=== PATIENT | female | born 1965 | race African-American/Black ===

== ENCOUNTER 2016-12-12 18:20 | Inpatient (IN) ==
[2016-12-12] MEDS ORDERED: HYDROmorphone 2 MG/1 ML VIAL IV STA (19:26)
[2016-12-12] MEDS ORDERED: ONDANSETRON 4 MG/2 ML VIAL IV STA (19:26)
[2016-12-12] MEDS ORDERED: ONDANSETRON 4 MG/2 ML VIAL ONE ×2 (19:26→21:12)
[2016-12-12] MEDS ORDERED: HYDROmorphone 2 MG/1 ML VIAL ONE ×3 (19:26→23:10)
--- NOTE | 2016-12-12 19:31 | Emergency Department Note ---
Rosetta Walton Hilary, am scribing for, and in the presence of, Will Newsome MD 18:53. Jerod Walton Robert M, MD, personally performed the services described in this documentation, ascribed by Patricia Sargent in my presence, and it is both accurate and complete 930 . Arrival - Arrival Chief Complaint: Abdominal / Flank Pain Stated Complaint: POST OP COMPLICATIONS ED Nursing Triage Note: C/O ABDOMINAL PAIN WITH ONSET 1700 TODAY. PT STATES SHE HAD A PARTIAL HYSTERECTOMY IN MAY OF LAST YEAR AND HAS HAD NO COMPLICATIONS. TODAY, PT WENT TO BATHROOM AND NOTICED A "WAD OF SOMETHING" WAS IN HER PANTIES. Mode of Arrival: Ambulatory Limitations: No Limitations Source: Patient, RN Notes Reviewed Time Seen by Provider: 12/12/16 18:45 - History of Present Illness HPI Narrative: Pt is a 51 y/o black female presenting to the ED with c/o abdominal pain which onset today. Pt states that she had a partial hysterectomy done per [facility] for a prolapsed uterus. She reports that she was peeing a lot and then noticed "something in her panties" she denies bleeding or pain. No other complaints or problems stated in the ED. Onset (ago): hour(s) Consistency: constant Severity: mild Severity scale (1-10): 1 Allergies/Adverse Reactions: Allergies Allergy/AdvReac Type Severity Reaction Status Date / Time No Known Allergies Allergy Unverified 01/27/16 09:13 Home Medications: Home Medications Medication Instructions Recorded Confirmed Type Butalbital/Acet/Caff 50-325-40 1 tablet PO Q4H PRN 12/12/16 12/12/16 History [Fioricet 50-325-40 mg Tablet] Nortriptyline [Pamelor] 10 mg PO BEDTIME 12/12/16 12/12/16 History Promethazine Tab [Phenergan Tab] 25 mg PO TID PRN 12/12/16 12/12/16 History Propranolol HCl [Propranolol Tab] 40 mg PO BID 12/12/16 12/12/16 History amLODIPine [Norvasc] 10 mg PO DAILY 12/12/16 12/12/16 History Review of System - Review of System 12 point system: reviewed and no additional remarkable complaints except as stated - Review of System Constitutional: Absent: fever Gastrointestinal: Present: abdominal pain Genitourinary female: Present: frequency, other ("something in her panties"). Absent: dysuria, hematuria Medical,Surgical,& Family Hx - Medical History Cardio: History of: Hypertension Neurology: History of: Migraine - Surgical History Reproductive Surgeries: Surgical HX of;: Hysterectomy (partial per [facility]) - Family History Family History: Reports;: Family Hypertension - Social History Smoking Status: Current every day smoker Frequency of Alcohol Use: None Type of Drug Use: None Exam Vital Signs: Vital Signs Temperature 97.9 F 12/12/16 18:44 Pulse Rate 83 12/12/16 18:44 Respiratory Rate 18 12/12/16 18:44 Blood Pressure 133/102 12/12/16 18:44 O2 Sat by Pulse Oximetry 96 12/12/16 18:30 - General General appearance: alert, in no apparent distress - Head Head exam: Present: atraumatic, normocephalic - Eye Eye exam: Present: normal appearance, PERRL, EOMI - ENT ENT exam: Present: mucous membranes moist, TM's normal bilaterally. Absent: mucous membranes dry - Neck Neck exam: Present: full ROM, trachea midline. Absent: tenderness - Chest Chest inspection: Present: symmetric chest wall rise. Absent: tenderness - Respiratory Respiratory exam: Present: normal lung sounds bilaterally. Absent: respiratory distress - Cardiovascular Cardiovascular exam: Present: regular rate, normal rhythm, normal heart sounds. Absent: murmur, rubs, gallop - Abdominal Exam Abdominal exam: Present: soft, normal bowel sounds. Absent: distention, tenderness - Female exam ED: Present: other (a cystocele) - Extremities Exam Extremities exam: Present: full ROM. Absent: tenderness - Back Exam Back exam: Present: full ROM. Absent: tenderness - Neurological Exam Neurological exam: Present: alert, oriented X3, CN II-XII intact. Absent: motor sensory deficit - Psychiatric Psychiatric exam: Present: normal affect, normal mood - Skin Skin exam: Present: warm, dry, intact, normal color. Absent: rash Course - Reevaluation(s) Reevaluation #1: Attempted manual reduction of the structure favored to represent cystocele with no johnie. Time: 19:25 - Consultations Consultation #1: Dr. Aj will come and evaluate the patient. Time: 19:27 Disposition Clinical Impression: Small bowel evisceration through vaginal Case discussed with: patient, patient's family Disposition: Still a Patient Condition: Stable Time of Disposition: 20:12
--- NOTE | 2016-12-12 20:13 | OB/GYN History & Physical ---
History of Present Illness Chief complaint: Status post hysterectomy with dehiscence of bowel through the vaginal cuff History of present illness: Ms. Schmitt is a 51 year old female Status post hysterectomy by Dr. Will Maldonado back in May was uncomplicated postoperatively until this morning patient states that she was trying to have a bowel movement and went to strain and at that point noted to have protrusion through the vagina which on evaluation in the ER appears to be small bowel mesentery which may have some degree of ischemia.. Patient was counseled general surgery was consulted and wrist benefits were explained patient detail informed to was obtained for laparotomy with repair of vaginal cuff and possible partial small bowel resection by general surgery. Home Medications Medication Instructions Recorded Confirmed Type Butalbital/Acet/Caff 50-325-40 1 tablet PO Q4H PRN 12/12/16 12/12/16 History [Fioricet 50-325-40 mg Tablet] Nortriptyline [Pamelor] 10 mg PO BEDTIME 12/12/16 12/12/16 History Promethazine Tab [Phenergan Tab] 25 mg PO TID PRN 12/12/16 12/12/16 History Propranolol HCl [Propranolol Tab] 40 mg PO BID 12/12/16 12/12/16 History amLODIPine [Norvasc] 10 mg PO DAILY 12/12/16 12/12/16 History Allergies Allergy/AdvReac Type Severity Reaction Status Date / Time No Known Allergies Allergy Unverified 01/27/16 09:13 12 point system: reviewed and no additional remarkable complaints except as stated Medical,Surgical,& Family Hx - Medical History Cardio: History of: Hypertension Neurology: History of: Migraine - Surgical History Reproductive Surgeries: Surgical HX of;: Hysterectomy (partial per [facility]) - Family History Family History: Reports;: Family Hypertension - Social History Smoking Status: Current every day smoker Frequency of Alcohol Use: None 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 of 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 - Constitutional Vitals: Vital Signs Temp Pulse Resp BP Pulse Ox 12/12/16 18:44 97.9 F 83 18 133/102 12/12/16 18:30 97.9 F 83 18 133/102 96 General appearance: normal weight, no acute distress - Head Head exam: Present: normal inspection, normocephalic, atraumatic - Neck Neck exam: Present: normal inspection - Respiratory Respiratory exam: Present: clear to auscultation bilaterally - Breast Breasts: as per HPI Menstruation: as per HPI - Cardiovascular Cardiovascular exam: Present: regular rate and rhythm - GI/Abdominal GI/Abdominal exam: Present: hypoactive bowel sounds - Extremities Exam Extremities exam: Present: normal inspection, normal capillary refill - Back Exam Back exam: Present: normal inspection - Neurological Exam Neurological exam: Present: alert, oriented X3 - Psychiatric Psychiatric exam: Present: normal affect, normal mood Assessment and Plan (1) Evisceration of bowel Status: Acute Current Visit: Yes (2) Vaginal cuff dehiscence Status: Acute Current Visit: Yes
[2016-12-12 20:19] LABS: Basophils % 0.4 % (0.0-0.8); Eosinophils # 0.6 10*3/uL (0.0-0.87); Eosinophils % 5.8 % (0.00-10.9); Hematocrit 34.7 VOL% (35.7-47.0); Hemoglobin 11.9 GM/DL (12.0-16.0); Immature Granulocytes % 0.3 %; Immature Granulocytes Absolute 0.03 #; Lymphocytes # 3.1 10*3/uL (1.4-4.0); Lymphocytes % 30.5 % (21.3-54.2); Mean Corpuscular HGB Conc 34.3 GM/DL (32-36); Mean Corpuscular Hemoglobin 29 PG (27-34); Mean Corpuscular Volume 83.4 FL (87-102); Mean Platelet Volume 10.3 FL (9.6-12.0); Monocytes # 0.6 10*3/uL (0.11-0.8); Monocytes % 6.1 % (1.7-12.7); Neutrophils # 5.7 10*3/uL (1.4-7.4); Neutrophils % 56.9 % (38.7-73.9); Platelet Count 306 T/CUMM (130-400); Red Blood Count 4.16 MC/CUMM (3.8-5.5); Red Cell Distribution Width 14.8 % (9.3-17.3)
[2016-12-12] MEDS ORDERED: MAGNESIUM HYDROXIDE SUSP 30 ML UDCUP PO PRN (20:23)
[2016-12-12] MEDS ORDERED: IBUPROFEN 800 MG TABLET PO PRN (20:23)
[2016-12-12] MEDS ORDERED: BENZOCAINE/MENTHOL LOZENGE 18/BOX PO PRN (20:23)
[2016-12-12] MEDS ORDERED: ACETAMINOPHEN 325 MG TABLET PO PRN (20:23)
[2016-12-12] MEDS ORDERED: BISACODYL 10 MG SUPP RECTAL PRN (20:23)
[2016-12-12] MEDS ORDERED: DOCUSATE SODIUM 100 MG CAPSULE PO PRN (20:23)
[2016-12-12] MEDS ORDERED: oxyCODONE/ACETAMINOPHEN 5-325 MG TABLET PO PRN (20:23)
[2016-12-12] MEDS ORDERED: ONDANSETRON 4 MG/2 ML VIAL IV PRN ×2 (20:23→23:27)
[2016-12-12 20:27] LABS: Calcium 8.4 MG/DL (8.5-10.1); Magnesium 1.9 MG/DL (1.8-2.4); Osmolality,Calculated 283.3 MOS/KG (273-304); Potassium 3.9 MMOL/L (3.5-5.1)
--- NOTE | 2016-12-12 20:29 | XRay Report ---
Exam: XR chest 1V portable Date: 12/12/2016 8:11 PM Indication: Chest pain shortness of breath Comparison: None Technical AP portable Findings:: Mild cardiac enlargement. External cardiac leads are present. No obvious infiltrates or effusions. The mediastinum and bony structures are intact. Impression: 1. Borderline cardiac enlargement without decompensation PROCEDURE INTERPRETED AT [facility] DEPARTMENT OF RADIOLOGY Final Report Signed by: Dr. Paramjit Rose
[2016-12-12] MEDS ORDERED: CITRIC ACID/SODIUM CITRATE 30 ML UDCUP PO ONE (20:44)
[2016-12-12] MEDS ORDERED: METOCLOPRAMIDE 10 MG/2 ML VIAL IV STA (20:44)
[2016-12-12] MEDS ORDERED: METOCLOPRAMIDE 10 MG/2 ML VIAL ONE (20:47)
[2016-12-12] MEDS ORDERED: SUCCINYLCHOLINE 200 MG/10 ML VIAL ONE (21:12)
[2016-12-12] MEDS ORDERED: NEOSTIGMINE 10 MG/10 ML VIAL ONE (21:12)
[2016-12-12] MEDS ORDERED: ROCURONIUM 100 MG/10 ML VIAL IV ONE (21:12)
[2016-12-12] MEDS ORDERED: GLYCOPYRROLATE 0.4 MG/2 ML VIAL ONE (21:12)
[2016-12-12] MEDS ORDERED: PROPOFOL 200 MG/20 ML VIAL IV ONE (21:12)
[2016-12-12] MEDS ORDERED: LIDOCAINE 100 MG/5 ML SYRINGE ONE (21:12)
--- NOTE | 2016-12-12 22:04 | Operative Note ---
Procedure: Was called by Dr. Aj from the emergency room on this patient who had a previous hysterectomy and Joel at the end of last year. She had eviscerated some small bowel through the vagina. She was taken the operating room where Dr. Aj open the abdomen through a Pfannenstiel incision. At this time I identified the ileum protruding through the vaginal cuff which was tight. Small incision was made on the vaginal cuff opening it slightly and the small bowel was able to be reduced back to within the abdomen. It appeared fairly congested but viable. It was packed in the abdomen while Dr. Aj repaired the vaginal cuff dehiscence. The abdomen was then thoroughly irrigated and suctioned. I reexamined the small bowel and there were no dusky areas. The congestion appeared to be improving. No other pelvic abnormality was identified. Dr. Aj then closed the abdomen. See his operative report for full details regarding the procedure. There was excellent hemostasis throughout the procedure. Surgeon / Physician: Brendon Jensen Results - Labs CBC & BMP: 12/12/16 19:38 12/12/16 19:38 Discharge Plan - Discharge Medications No Action Propranolol HCl [Propranolol Tab] 40 mg PO BID Promethazine Tab [Phenergan Tab] 25 mg PO TID PRN PRN Reason: Headache Butalbital/Acet/Caff 50-325-40 [Fioricet 50-325-40 mg Tablet] 1 tablet PO Q4H PRN PRN Reason: Headache amLODIPine [Norvasc] 10 mg PO DAILY Nortriptyline [Pamelor] 10 mg PO BEDTIME - Follow Up or Referral - Forms/Instructions
--- NOTE | 2016-12-12 22:40 | Operative Note ---
Date of procedure: 12/12/16 Pre-op diagnosis: Evisceration of small bowel through the apex of the vaginal cuff Post-op diagnosis: same Procedure: Laparotomy with repair of vaginal cuff After the risks benefits and alternatives were explained patient detail informed to was obtained patient was taken the operating room where she is placed in the supine position. After achieving appropriate general endotracheal anesthesia patient was carefully repositioned to the low lithotomy position in Pilo stirrups. The perineum vagina and abdomen were prepped and draped in usual sterile fashion. A Sánchez catheter was placed which revealed clear urine. After the appropriate time out a Pfannenstiel skin incision was made carried down through the subcutaneous tissue down the fascia. The fascia was nicked in the midportion undermined and incised with laterally and cephalad using sharp dissection with curved Roberts scissors. There is noted that the fascia was somewhat attenuated consistent with probable poor nutrition of the patient. The peritoneum was identified grasped with a curved hemostats and entered sharply using Metzenbaum scissors. The peritoneal incision was carried posteriorly inferiorly mentioned above the bladder bladder. The bowel was swept away cephalad using moist laparotomy sponge. This point the procedure Dr. Jensen scrubbed in and found that the loop of bowel was somewhat strangulated in the vaginal cuff. He extended the incision on the vaginal cuff the bowel was then freed up and he then inspected the bowel. The vaginal cuff was then grasped at both margins and it was closed using #1 Monocryl suture in a running interlocking fashion. Hemostasis noted to be excellent. At this point Dr. Jensen reevaluate the bowel. It was noted to be hyperemic but he felt like the blood supply was not compromised and consequently no further surgery was done. The abdomen was copiously irrigated and all areas noted to be hemostatic. All counts are noted to be correct the peritoneum was then closed with 2-0 PDS suture in a running fashion. The subfascial area was made hemostatic using electrocautery and the fascia closed with #1 PDS suture in a running fashion taking wide bites beginning at both angles and overlapping slightly midline. The subcutaneous tissue was irrigated and is to use electrocautery closed with 2-0 Vicryl suture in an running fashion and the skin was closed with skin la and sterile pressure bandage applied the wound. All sponge needle and insert counts correct times in the procedure. Note that the urine was somewhat blood-tinged after the bowel had been removed from the apex of the vagina. Prior to closure of the peritoneum and of the layers of the bladder was insufflated with injectable normal saline that was sterile and there was no evidence of any compromise of the bladder wall. The patient was taken out of lithotomy position woke from anesthesia without complication taken to recovery room in stable condition Anesthesia: EMILIE Surgeon / Physician: Simba Aj Estimated blood loss: minimal Specimens: none sent Condition: stable Disposition: floor Results - Labs CBC & BMP: 12/12/16 19:38 12/12/16 19:38 Discharge Plan - Discharge Medications No Action Propranolol HCl [Propranolol Tab] 40 mg PO BID Promethazine Tab [Phenergan Tab] 25 mg PO TID PRN PRN Reason: Headache Butalbital/Acet/Caff 50-325-40 [Fioricet 50-325-40 mg Tablet] 1 tablet PO Q4H PRN PRN Reason: Headache amLODIPine [Norvasc] 10 mg PO DAILY Nortriptyline [Pamelor] 10 mg PO BEDTIME - Follow Up or Referral - Forms/Instructions
[2016-12-12] MEDS ORDERED: SUGAMMADEX 200 MG/2 ML VIAL IV ONE (22:45)
[2016-12-12] MEDS ORDERED: fentaNYL 100 MCG/2 ML VIAL ONE ×2 (22:55→23:11)
--- NOTE | 2016-12-12 23:07 | Anesthesia Post-Op ---
Anesthesia Post OP - Post Ansesthetic Evaluation Patient seen in post op: Yes Resp: within normal limits CV: within normal limits Mental: within normal limits Temp: within normal limits Mhbn-Vk-Oyetguroe: within normal limits Nausea and Vomiting: within normal limits Pain: within normal limits
[2016-12-12] MEDS ORDERED: SEVOFLURANE 1 UNIT/15 MINUTE INH ONE (23:10)
[2016-12-12] MEDS ORDERED: MIDAZOLAM 2 MG/2 ML VIAL ONE (23:10)
[2016-12-12] MEDS ORDERED: ACETAMINOPHEN 1,000 MG/100 ML VIAL IV ONE (23:11)
[2016-12-12 23:20] LABS: Apearance,Urine CLEAR (Clear); Bilirubin,Urine Negative (Negative); Blood, Urine Small mg/dL (Negative); Glucose,Urine (UA) Negative (Negative); Ketones,Urine 5 mg/dL (Negative); Mucus,Urine Occasional /LPF (Occasional); Nitrite,Urine Negative (Negative); Protein,Urine Negative; RBC,Urine 11 /HPF (0-4); Squamous Epithelial Cell,Urine Occasional /HPF (0-10); Urine Color Yellow (Yellow); Urine Specific Gravity 1.024 (1.001-1.035); Urine Urobilinogen < 2.0 EU/DL (0.2-1.0); WBC,Urine 2 /HPF (0-6)
[2016-12-12] MEDS ORDERED: HYDROmorphone 2 MG/1 ML VIAL IV PRN (23:27)
[2016-12-12] MEDS ORDERED: BUTALBITAL/ACETAMIN/CAFFEINE 50-325-40 MG TABLET PO PRN (23:57)
[2016-12-12] MEDS ORDERED: PROMETHAZINE 25 MG TABLET PO PRN (23:57)
[2016-12-13] MEDS: LACTATED RINGERS 1,000 ML IV SCH ×3 (00:49→19:30)
[2016-12-13 04:12] LABS: Basophils % 0.2 % (0.0-0.8); Eosinophils # 0.1 10*3/uL (0.0-0.87); Eosinophils % 1.1 % (0.00-10.9); Hematocrit 36.4 VOL% (35.7-47.0); Hemoglobin 11.8 GM/DL (12.0-16.0); Immature Granulocytes % 0.2 %; Immature Granulocytes Absolute 0.03 #; Lymphocytes # 1.8 10*3/uL (1.4-4.0); Lymphocytes % 14.9 % (21.3-54.2); Mean Corpuscular HGB Conc 32.4 GM/DL (32-36); Mean Corpuscular Hemoglobin 28 PG (27-34); Mean Corpuscular Volume 86.1 FL (87-102); Mean Platelet Volume 11.4 FL (9.6-12.0); Monocytes # 0.6 10*3/uL (0.11-0.8); Monocytes % 4.8 % (1.7-12.7); Neutrophils # 9.6 10*3/uL (1.4-7.4); Neutrophils % 78.8 % (38.7-73.9); Platelet Count 215 T/CUMM (130-400); Red Blood Count 4.23 MC/CUMM (3.8-5.5); Red Cell Distribution Width 15.2 % (9.3-17.3); White Blood Count 12.2 T/CUMM (4-12)
--- NOTE | 2016-12-13 06:54 | EKG Report ---
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
[2016-12-13] MEDS: PROPRANOLOL 40 MG TABLET PO SCH ×2 (08:43→20:35)
[2016-12-13] MEDS: amLODIPine 10 MG TABLET PO SCH (08:43)
--- NOTE | 2016-12-13 08:49 | OB/GYN Progress Note ---
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 She is tolerating liquids she is alert and oriented -3 Cardiovascular regular rate and rhythm Lungs clear to auscultation Abdomen soft with appropriate tenderness and bowel sounds are present but hypoactive and her incision is dry no bleeding Is good refill HEENT shows pink conjunctiva ssessment 1 day of surgery doing well Plan continue present management with continue clear liquids today and will advance diet slowly. 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 - Constitutional Vitals: Vital Signs Temp Pulse Pulse Resp BP BP Pulse Ox 12/13/16 04:45 85 20 107/74 12/13/16 03:45 93 H 18 105/69 12/13/16 02:45 77 16 112/69 12/13/16 01:45 77 18 110/70 12/13/16 01:15 88 20 112/68 12/13/16 00:45 70 18 105/64 12/13/16 00:30 80 16 104/71 12/13/16 00:15 60 20 104/71 12/13/16 00:00 97.5 F L 60 60 16 133/72 100 12/12/16 23:42 97.4 F L 78 16 112/84 100 12/12/16 23:32 68 16 119/86 99 12/12/16 23:22 66 16 123/74 100 12/12/16 23:12 66 16 127/77 99 12/12/16 23:07 63 16 117/58 100 12/12/16 23:02 77 16 104/58 99 12/12/16 22:57 74 16 145/78 99 12/12/16 22:52 97.6 F 91 H 16 127/95 98 12/12/16 18:44 97.9 F 83 18 133/102 12/12/16 18:30 97.9 F 83 18 133/102 96 Pulse Ox 12/13/16 04:45 99 12/13/16 03:45 99 12/13/16 02:45 98 12/13/16 01:45 97 12/13/16 01:15 96 12/13/16 00:45 96 12/13/16 00:30 97 12/13/16 00:15 97 12/13/16 00:00 100 12/12/16 23:42 12/12/16 23:32 12/12/16 23:22 12/12/16 23:12 12/12/16 23:07 12/12/16 23:02 12/12/16 22:57 12/12/16 22:52 12/12/16 18:44 12/12/16 18:30 Results - Labs CBC & BMP: 12/13/16 02:56 12/12/16 19:38
--- NOTE | 2016-12-13 14:14 | Event Note ---
Patient is a 51-year-old female postop day #1 status post laparotomy with repair of vaginal cuff for evisceration of small bowel through the vaginal cuff. Dr. Durham was consulted for examination of the bowel. There is no evidence of concern for ischemia. Patient is tolerating clears without complication. Abdomen is soft and nontender. Bowel sounds are present. Recommend advancing diet as tolerated.
[2016-12-13] MEDS ORDERED: NORTRIPTYLINE 10 MG CAPSULE PO SCH (21:00)
[2016-12-14] MEDS: LACTATED RINGERS 1,000 ML IV SCH (03:20)
--- NOTE | 2016-12-14 07:05 | Discharge Summary ---
Hospital Course - Hospital Course Hospital Course: Postoperatively the patient did well. She had quick return of bowel bladder function. She remained afebrile and normotensive throughout her hospitalization. She is counseled discharged on postoperative day #2 on a regular diet Diagnosis - Discharge Diagnosis (1) Evisceration of bowel Status: Acute (2) Vaginal cuff dehiscence Status: Acute Discharge Plan - Discharge Data Disposition: Disch To Home/Self Care Condition at Discharge: Stable Discharge Diet: regular diet Activity: increase activity as tolerated, no lifting, other (Pelvic rest) Hygiene: may shower Weight Bearing at Discharge: full weight bearing Driving: not until seen by doctor Contact your physician if you experience:: fever over 101, Difficulty voiding, Redness or swelling, Nausea/Vomiting, Shortness of breath, Bleeding, pain uncontrolled by pain medications - Discharge Medications New HYDROcodone/ACETAMIN 5-325 [[place] 5-325] 1 tablet PO Q4H PRN #20 tablet PRN Reason: Pain Moderate (4-7) Ibuprofen Tab [Motrin Tab] 800 mg PO Q8H PRN tablet PRN Reason: Pain Mild To Moderate (1-7) amLODIPine [Norvasc] 10 mg PO DAILY tablet Continue Propranolol HCl [Propranolol Tab] 40 mg PO BID Butalbital/Acet/Caff 50-325-40 [Fioricet 50-325-40 mg Tablet] 1 tablet PO Q4H PRN PRN Reason: Headache amLODIPine [Norvasc] 10 mg PO DAILY Nortriptyline [Pamelor] 10 mg PO BEDTIME Discontinued Promethazine Tab [Phenergan Tab] 25 mg PO TID PRN PRN Reason: Headache - Follow Up or Referral Follow Up: Simba Aj MD [Physician] - 1 Week - Forms/Instructions Exam - Constitutional Vitals: Period Temp Pulse Resp BP Sys/Starkey Pulse Ox Last 24 Hr 97.8 F-98.6 F 69-86 18-20 110-129/64-78 96-99 Discharge Results Procedures and tests throughout hospitalization: Pending Orders 12/12/16 Urine Culture Routine Labs on day of discharge: Preliminary micro results at discharge 12/12/16 Unknown Urine Culture - Preliminary Urine,Catheterized No Growth at 12 hours. DS: Provider Date of admission: 12/12/16 20:23 Primary care physician: . No PCP Attending physician on admission: Aidan Binghamarging clinician: Aidan Bingham
[2016-12-14] MEDS: PROPRANOLOL 40 MG TABLET PO SCH (08:32)
[2016-12-14] MEDS: amLODIPine 10 MG TABLET PO SCH (08:32)
[2016-12-14 11:27] VITALS: BP 113/73
== END 2016-12-14 13:45 | disposition home or self-care (01) | DRG 909 ==
LOC: N.ED 18:20 → N.EDINP 20:10 → N.2E 23:56
PROVIDERS: ADMIT Specialist; ATTEND Specialist

== ENCOUNTER 2017-08-13 10:28 | Inpatient (IN) ==
[2017-08-13 12:03] LABS: Basophils # 0.1 10*3/uL (0.0-0.2); Basophils % 0.4 % (0.0-0.8); Eosinophils # 0.1 10*3/uL (0.0-0.87); Eosinophils % 0.6 % (0.00-10.9); Hematocrit 32.9 VOL% (35.7-47.0); Hemoglobin 11.3 GM/DL (12.0-16.0); Immature Granulocytes % 0.5 %; Immature Granulocytes Absolute 0.08 #; Lymphocytes # 1.9 10*3/uL (1.4-4.0); Lymphocytes % 12.6 % (21.3-54.2); Mean Corpuscular HGB Conc 34.3 GM/DL (32-36); Mean Corpuscular Hemoglobin 28 PG (27-34); Mean Corpuscular Volume 82.5 FL (87-102); Mean Platelet Volume 10.2 FL (9.6-12.0); Monocytes # 0.4 10*3/uL (0.11-0.8); Monocytes % 2.6 % (1.7-12.7); Neutrophils # 12.9 10*3/uL (1.4-7.4); Neutrophils % 83.3 % (38.7-73.9); Platelet Count 426 T/CUMM (130-400); Red Blood Count 3.99 MC/CUMM (3.8-5.5); Red Cell Distribution Width 15.3 % (9.3-17.3); White Blood Count 15.5 T/CUMM (4-12)
[2017-08-13 12:26] LABS: Alanine Aminotransferase < 6 U/L (13-56); Albumin 3.2 G/DL (3.4-5.0); Alkaline Phosphatase 80 U/L (45-117); Aspartate Amino Transferase 24 U/L (0-37); Blood Urea Nitrogen 16 MG/DL (7-18); Calcium 8.8 MG/DL (8.5-10.1); Glucose 93 MG/DL (74-106); Magnesium 2.1 MG/DL (1.8-2.4); Osmolality,Calculated 283.1 MOS/KG (273-304); Potassium 4.4 MMOL/L (3.5-5.1); Sodium 142 MMOL/L (136-145)
[2017-08-13 13:25] LABS: Apearance,Urine CLEAR (Clear); Bilirubin,Urine Negative (Negative); Blood, Urine Moderate mg/dL (Negative); Glucose,Urine (UA) Negative (Negative); Hyaline Casts,Urine 1 /LPF (0-3); Ketones,Urine 5 mg/dL (Negative); Mucus,Urine Occasional /LPF (Occasional); Nitrite,Urine Negative (Negative); Protein,Urine Negative; RBC,Urine 40 /HPF (0-4); Urine Specific Gravity 1.028 (1.001-1.035); Urine Urobilinogen < 2.0 EU/DL (0.2-1.0); WBC,Urine 1 /HPF (0-6)
[2017-08-13 13:28] LABS: Urine Color U (Yellow)
[2017-08-13] MEDS ORDERED: LEVOFLOXACIN INJ 500 MG in PREMIX 1 EACH IV STA (13:29)
[2017-08-13 13:31] LABS: Barbiturates Screen,Urine Positive (Negative); Benzodiazepines Screen,Urine Positive (Negative); Cannabinoid Screen,Urine Negative (Negative); Opiate Screen,Urine Positive (Negative); Phencyclidine Screen,Urine Negative (Negative)
[2017-08-13] MEDS ORDERED: LEVOFLOXACIN INJ 100 ML IV ONE (13:50)
[2017-08-13] MEDS ORDERED: ONDANSETRON 4 MG/2 ML VIAL IV PRN (17:47)
[2017-08-13] MEDS ORDERED: LEVOFLOXACIN INJ 750 MG in PREMIX 1 EACH IV SCH (18:00)
[2017-08-13] MEDS: ALBUTEROL/IPRATROPIUM 3 ML NEB RESP TX SCH (21:09)
[2017-08-13] MEDS: TOPIRAMATE 25 MG TABLET PO SCH (21:57)
[2017-08-13] MEDS: PROPRANOLOL 40 MG TABLET PO SCH (21:57)
[2017-08-13] MEDS: ACETAMINOPHEN 325 MG TABLET PO PRN (22:02)
[2017-08-14] MEDS: ALBUTEROL/IPRATROPIUM 3 ML NEB RESP TX SCH ×4 (00:15→18:30)
[2017-08-14 07:33] LABS: Basophils % 0.5 % (0.0-0.8); Eosinophils # 0.2 10*3/uL (0.0-0.87); Eosinophils % 2.3 % (0.00-10.9); Hematocrit 32.1 VOL% (35.7-47.0); Hemoglobin 10.5 GM/DL (12.0-16.0); Immature Granulocytes % 0.4 %; Immature Granulocytes Absolute 0.03 #; Lymphocytes # 2.3 10*3/uL (1.4-4.0); Lymphocytes % 29.2 % (21.3-54.2); Mean Corpuscular HGB Conc 32.7 GM/DL (32-36); Mean Corpuscular Hemoglobin 28 PG (27-34); Mean Corpuscular Volume 84.9 FL (87-102); Mean Platelet Volume 10.1 FL (9.6-12.0); Monocytes # 0.3 10*3/uL (0.11-0.8); Neutrophils % 63.6 % (38.7-73.9); Platelet Count 358 T/CUMM (130-400); Red Blood Count 3.78 MC/CUMM (3.8-5.5); Red Cell Distribution Width 15.6 % (9.3-17.3); White Blood Count 7.8 T/CUMM (4-12)
[2017-08-14 08:07] LABS: Calcium 8.2 MG/DL (8.5-10.1); Magnesium 2.1 MG/DL (1.8-2.4); Osmolality,Calculated 286.8 MOS/KG (273-304); Potassium 3.7 MMOL/L (3.5-5.1)
[2017-08-14] MEDS: AZITHROMYCIN 250 MG TABLET PO SCH (09:27)
[2017-08-14] MEDS: PANTOPRAZOLE 40 MG TABLET PO SCH (09:27)
[2017-08-14] MEDS: amLODIPine 10 MG TABLET PO SCH (09:28)
[2017-08-14] MEDS: PROPRANOLOL 40 MG TABLET PO SCH ×2 (09:28→21:45)
[2017-08-14] MEDS: ACETAMINOPHEN 325 MG TABLET PO PRN (12:37)
[2017-08-14] MEDS ORDERED: LEVOFLOXACIN INJ 750 MG in PREMIX 1 EACH IV SCH (15:00)
[2017-08-14] MEDS: TOPIRAMATE 25 MG TABLET PO SCH (21:44)
[2017-08-14] MEDS: NICOTINE 21 MG/24 HR PATCH TRANSDERM SCH (21:45)
[2017-08-15] MEDS: ACETAMINOPHEN 325 MG TABLET PO PRN ×2 (02:24→09:57)
[2017-08-15 07:22] LABS: Basophils % 0.3 % (0.0-0.8); Eosinophils # 0.4 10*3/uL (0.0-0.87); Hematocrit 31.6 VOL% (35.7-47.0); Hemoglobin 10.4 GM/DL (12.0-16.0); Immature Granulocytes % 0.4 %; Immature Granulocytes Absolute 0.04 #; Lymphocytes # 2.5 10*3/uL (1.4-4.0); Lymphocytes % 28.3 % (21.3-54.2); Mean Corpuscular HGB Conc 32.9 GM/DL (32-36); Mean Corpuscular Hemoglobin 28 PG (27-34); Mean Corpuscular Volume 84.3 FL (87-102); Mean Platelet Volume 9.6 FL (9.6-12.0); Monocytes # 0.5 10*3/uL (0.11-0.8); Monocytes % 5.5 % (1.7-12.7); Neutrophils # 5.5 10*3/uL (1.4-7.4); Neutrophils % 61.5 % (38.7-73.9); Platelet Count 348 T/CUMM (130-400); Red Blood Count 3.75 MC/CUMM (3.8-5.5); Red Cell Distribution Width 15.5 % (9.3-17.3)
[2017-08-15] MEDS: ALBUTEROL/IPRATROPIUM 3 ML NEB RESP TX SCH ×2 (07:36)
[2017-08-15 07:51] LABS: Calcium 8.5 MG/DL (8.5-10.1); Osmolality,Calculated 287.7 MOS/KG (273-304); Potassium 3.6 MMOL/L (3.5-5.1)
[2017-08-15] MEDS: NICOTINE 21 MG/24 HR PATCH TRANSDERM SCH (09:56)
[2017-08-15] MEDS: amLODIPine 10 MG TABLET PO SCH (09:57)
[2017-08-15] MEDS: PROPRANOLOL 40 MG TABLET PO SCH (09:57)
[2017-08-15] MEDS: PANTOPRAZOLE 40 MG TABLET PO SCH (09:57)
[2017-08-15] MEDS: AZITHROMYCIN 250 MG TABLET PO SCH (09:57)
[2017-08-15 10:26] VITALS: BP 106/62
== END 2017-08-15 12:02 | disposition home or self-care (01) | DRG 195 ==
LOC: N.EDINP 10:28 → N.ED 10:28 → N.5E 19:01

== ENCOUNTER 2018-06-15 12:01 | Inpatient (IN) ==
[2018-06-15] MEDS ORDERED: SODIUM CHLORIDE 0.9% 1,000 ML IV STA (12:35)
[2018-06-15 13:16] LABS: Basophils # 0.1 10*3/uL (0.0-0.2); Basophils % 0.4 % (0.0-0.8); Eosinophils % 0.2 % (0.00-10.9); Hematocrit 41.4 VOL% (35.7-47.0); Hemoglobin 13.3 GM/DL (12.0-16.0); Immature Granulocytes % 0.5 %; Immature Granulocytes Absolute 0.06 #; Lymphocytes % 17.8 % (21.3-54.2); Mean Corpuscular HGB Conc 32.1 GM/DL (32-36); Mean Corpuscular Hemoglobin 27 PG (27-34); Mean Corpuscular Volume 85.4 FL (87-102); Mean Platelet Volume 10.7 FL (9.6-12.0); Monocytes # 0.5 10*3/uL (0.11-0.8); Monocytes % 4.4 % (1.7-12.7); Neutrophils # 8.7 10*3/uL (1.4-7.4); Neutrophils % 76.7 % (38.7-73.9); Platelet Count 362 T/CUMM (130-400); Red Blood Count 4.85 MC/CUMM (3.8-5.5); Red Cell Distribution Width 13.8 % (9.3-17.3); White Blood Count 11.4 T/CUMM (4-12)
[2018-06-15 13:37] LABS: Lactic Acid 1.3 MMOL/L (0.4-2.0)
[2018-06-15 13:45] LABS: Alanine Aminotransferase 13 U/L (13-56); Albumin 3.4 G/DL (3.4-5.0); Alkaline Phosphatase 86 U/L (45-117); Amylase 49 U/L (25-115); Aspartate Amino Transferase 17 U/L (0-37); Bilirubin,Total < 0.39 MG/DL (0.2-1.0); Blood Urea Nitrogen 12 MG/DL (7-18); Calcium 10.1 MG/DL (8.5-10.1); Glucose 96 MG/DL (74-106); Osmolality,Calculated 280.3 MOS/KG (273-304); Potassium 3.5 MMOL/L (3.5-5.1); Sodium 141 MMOL/L (136-145)
[2018-06-15 14:04] LABS: Apearance,Urine Slightly Hazy (Clear); Bilirubin,Urine Negative (Negative); Blood, Urine Negative (Negative); Glucose,Urine (UA) Negative (Negative); Ketones,Urine 5 mg/dL (Negative); Mucus,Urine Few /LPF (Occasional); Nitrite,Urine Negative (Negative); Protein,Urine 30 MG/DL; RBC,Urine 1 /HPF (0-4); Urine Color Yellow (Yellow); Urine Urobilinogen < 2.0 EU/DL (0.2-1.0); WBC,Urine 3 /HPF (0-6)
[2018-06-15] MEDS ORDERED: ONDANSETRON 4 MG/2 ML VIAL IV STA ×2 (15:10→15:55)
[2018-06-15] MEDS ORDERED: ONDANSETRON 4 MG/2 ML VIAL ONE (15:11)
[2018-06-15] MEDS ORDERED: MORPHINE 4 MG/1 ML VIAL IV STA (16:07)
[2018-06-15] MEDS ORDERED: PROMETHAZINE 25 MG/1 ML VIAL IM PRN (17:04)
[2018-06-15] MEDS ORDERED: PROMETHAZINE INJ 12.5 MG in SODIUM CHLORIDE 0.9% 50 ML IV PRN (17:10)
[2018-06-15] MEDS ORDERED: hydrALAZINE 20 MG/1 ML VIAL IV PRN (17:12)
[2018-06-15] MEDS: SODIUM CHLORIDE 0.9% 1,000 ML IV SCH (17:19)
[2018-06-15] MEDS: MORPHINE 4 MG/1 ML VIAL IV PRN (23:21)
[2018-06-16] MEDS ORDERED: INFLUENZA VIRUS VACCINE 0.5 ML SYRINGE IM ONE (02:16)
[2018-06-16] MEDS: SODIUM CHLORIDE 0.9% 1,000 ML IV SCH ×3 (03:35→23:34)
[2018-06-16] MEDS: MORPHINE 4 MG/1 ML VIAL IV PRN ×5 (03:43→23:34)
[2018-06-16 05:40] LABS: Basophils # 0.1 10*3/uL (0.0-0.2); Basophils % 0.5 % (0.0-0.8); Eosinophils # 0.2 10*3/uL (0.0-0.87); Eosinophils % 1.5 % (0.00-10.9); Hemoglobin 10.8 GM/DL (12.0-16.0); Immature Granulocytes % 0.2 %; Immature Granulocytes Absolute 0.02 #; Lymphocytes # 2.7 10*3/uL (1.4-4.0); Mean Corpuscular HGB Conc 30.9 GM/DL (32-36); Mean Corpuscular Hemoglobin 27 PG (27-34); Mean Corpuscular Volume 86.2 FL (87-102); Mean Platelet Volume 11.1 FL (9.6-12.0); Monocytes # 0.7 10*3/uL (0.11-0.8); Monocytes % 6.5 % (1.7-12.7); Neutrophils # 6.8 10*3/uL (1.4-7.4); Neutrophils % 65.3 % (38.7-73.9); Platelet Count 286 T/CUMM (130-400); Red Blood Count 4.06 MC/CUMM (3.8-5.5); Red Cell Distribution Width 13.7 % (9.3-17.3); White Blood Count 10.4 T/CUMM (4-12)
[2018-06-16 06:09] LABS: Calcium 8.6 MG/DL (8.5-10.1); Osmolality,Calculated 279.1 MOS/KG (273-304); Potassium 3.6 MMOL/L (3.5-5.1)
[2018-06-16 12:04] LABS: % Iron Saturation 29.2 % (18-50); Ferritin 55.3 ng/ml (8-252)
[2018-06-16 12:09] LABS: Folate 10.8 NG/ML (5.4-24.0)
[2018-06-17] MEDS: MORPHINE 4 MG/1 ML VIAL IV PRN ×3 (05:08→20:42)
[2018-06-17] MEDS ORDERED: LIDOCAINE 100 MG/5 ML SYRINGE ONE (09:00)
[2018-06-17] MEDS ORDERED: PROPOFOL 200 MG/20 ML VIAL IV ONE (09:00)
[2018-06-17] MEDS: SODIUM CHLORIDE 0.9% 1,000 ML IV SCH (09:35)
[2018-06-17] MEDS: SUCRALFATE 1 GM TABLET PO SCH ×3 (11:36→20:40)
[2018-06-17] MEDS: ONDANSETRON 4 MG/2 ML VIAL IV PRN ×2 (15:19→20:41)
[2018-06-17] MEDS: PANTOPRAZOLE 40 MG TABLET PO SCH (20:40)
[2018-06-18] MEDS: SODIUM CHLORIDE 0.9% 1,000 ML IV SCH ×3 (00:39→15:20)
[2018-06-18] MEDS: ONDANSETRON 4 MG/2 ML VIAL IV PRN (04:00)
[2018-06-18] MEDS: MORPHINE 4 MG/1 ML VIAL IV PRN ×2 (04:01→10:38)
[2018-06-18] MEDS: SUCRALFATE 1 GM TABLET PO SCH ×3 (09:26→17:53)
[2018-06-18] MEDS: PANTOPRAZOLE 40 MG TABLET PO SCH (09:26)
[2018-06-18 10:36] LABS: Hematocrit 32.5 VOL% (35.7-47.0); Hemoglobin 10.5 GM/DL (12.0-16.0)
[2018-06-18 17:57] VITALS: BP 118/76
[2018-06-20 08:35] LABS: Vitamin A, S 35.1 mcg/dL (32.5-78.0)
== END 2018-06-18 18:13 | disposition home or self-care (01) | DRG 392 ==
LOC: N.ED 12:01 → N.EDINP 16:32 → SUATTDRO 16:32 → N.3E 18:10
PROVIDERS: ADMIT Internal Medicine Infectious Disease; ATTEND Internal Medicine

== ENCOUNTER 2018-11-28 05:47 | Inpatient (IN) ==
[2018-11-20 11:24] LABS: Basophils # 0.1 10*3/uL (0.0-0.2); Basophils % 0.7 % (0.0-0.8); Eosinophils # 0.7 10*3/uL (0.0-0.87); Eosinophils % 9.5 % (0.00-10.9); Hematocrit 36.8 VOL% (35.7-47.0); Hemoglobin 11.5 GM/DL (12.0-16.0); Immature Granulocytes % 0.3 %; Immature Granulocytes Absolute 0.02 #; Lymphocytes # 2.2 10*3/uL (1.4-4.0); Lymphocytes % 32.3 % (21.3-54.2); Mean Corpuscular HGB Conc 31.3 GM/DL (32-36); Mean Platelet Volume 9.3 FL (9.6-12.0); Monocytes % 4.5 % (1.7-12.7); Neutrophils % 52.7 % (38.7-73.9); Platelet Count 271 T/CUMM (130-400); Red Blood Count 4.23 MC/CUMM (3.8-5.5); Red Cell Distribution Width 16.3 % (9.3-17.3); White Blood Count 6.9 T/CUMM (4-12)
[2018-11-20 12:09] LABS: Alanine Aminotransferase 9 U/L (13-56); Albumin 3.7 G/DL (3.4-5.0); Alkaline Phosphatase 64 U/L (45-117); Aspartate Amino Transferase 11 U/L (0-37); Bilirubin,Total < 0.39 MG/DL (0.2-1.0); Blood Urea Nitrogen 19 MG/DL (7-18); Calcium 8.8 MG/DL (8.5-10.1); Glucose 93 MG/DL (74-106); Osmolality,Calculated 291.6 MOS/KG (273-304); Total Protein 7.6 G/DL (6.4-8.3)
[2018-11-28] MEDS ORDERED: TISSUE ADHESIVE 1 EACH APPLICATOR TOP ONE (06:26)
[2018-11-28] MEDS ORDERED: BUPIVACAINE 0.25% /EPI 10 ML VIAL ONE (06:26)
[2018-11-28] MEDS ORDERED: LIDOCAINE 1%/EPI INJ 20 ML VIAL ONE (06:26)
[2018-11-28] MEDS ORDERED: cefOXitin 1,000 MG in SYRINGE 1 EACH IV ONE (06:30)
[2018-11-28] MEDS ORDERED: LACTATED RINGERS 1,000 ML IV SCH (07:00)
[2018-11-28] MEDS ORDERED: ACETAMINOPHEN 1,000 MG/100 ML VIAL IV ONE (07:35)
[2018-11-28] MEDS ORDERED: PROPOFOL 200 MG/20 ML VIAL IV ONE (12:00)
[2018-11-28] MEDS ORDERED: SEVOFLURANE 1 UNIT/15 MINUTE INH ONE (12:01)
[2018-11-28] MEDS ORDERED: DEXAMETHASONE 4 MG/1 ML VIAL ONE (12:01)
[2018-11-28] MEDS ORDERED: ONDANSETRON 4 MG/2 ML VIAL ONE ×2 (12:01→12:08)
[2018-11-28] MEDS ORDERED: fentaNYL 100 MCG/2 ML VIAL ONE (12:01)
[2018-11-28] MEDS ORDERED: MIDAZOLAM 2 MG/2 ML VIAL ONE (12:01)
[2018-11-28] MEDS ORDERED: KETOROLAC 30 MG/1 ML VIAL ONE (12:01)
[2018-11-28] MEDS ORDERED: ROCURONIUM 100 MG/10 ML VIAL IV ONE (12:02)
[2018-11-28] MEDS ORDERED: SUCCINYLCHOLINE 200 MG/10 ML VIAL ONE (12:02)
[2018-11-28] MEDS ORDERED: LACTATED RINGERS 1,000 ML IV ONE (12:02)
[2018-11-28] MEDS ORDERED: PHENYLEPHRINE 1 MG/10 ML SYRINGE IV ONE (12:02)
[2018-11-28] MEDS ORDERED: NEOSTIGMINE 10 MG/10 ML VIAL ONE (12:02)
[2018-11-28] MEDS ORDERED: GLYCOPYRROLATE 0.4 MG/2 ML VIAL ONE (12:02)
[2018-11-28] MEDS ORDERED: MEPERIDINE 25 MG/1 ML VIAL ONE (12:08)
[2018-11-28] MEDS ORDERED: MEPERIDINE 25 MG/1 ML VIAL IV PRN (12:09)
[2018-11-28] MEDS ORDERED: ONDANSETRON 4 MG/2 ML VIAL IV PRN ×2 (12:09→12:18)
[2018-11-28 13:21] LABS: Hematocrit 38.1 VOL% (35.7-47.0); Hemoglobin 11.6 GM/DL (12.0-16.0)
[2018-11-28] MEDS: MORPHINE 4 MG/1 ML VIAL IV PRN ×3 (13:54→22:16)
[2018-11-28] MEDS: FAMOTIDINE 20 MG/2 ML VIAL IV SCH ×2 (13:55→20:39)
[2018-11-28] MEDS: POTASSIUM CHLORIDE INJ 20 MEQ in LACTATED RINGERS 1,000 ML IV SCH (16:25)
[2018-11-28] MEDS: ceFAZolin 2,000 MG in PREMIX 1 EACH IV SCH (17:57)
[2018-11-28 21:31] LABS: Hematocrit 34.1 VOL% (35.7-47.0); Hemoglobin 10.6 GM/DL (12.0-16.0)
[2018-11-29] MEDS: ceFAZolin 2,000 MG in PREMIX 1 EACH IV SCH (02:03)
[2018-11-29] MEDS: POTASSIUM CHLORIDE INJ 20 MEQ in LACTATED RINGERS 1,000 ML IV SCH ×4 (02:19→23:59)
[2018-11-29 05:57] LABS: Basophils % 0.4 % (0.0-0.8); Eosinophils # 0.1 10*3/uL (0.0-0.87); Eosinophils % 0.9 % (0.00-10.9); Hemoglobin 11.4 GM/DL (12.0-16.0); Immature Granulocytes % 0.4 %; Immature Granulocytes Absolute 0.04 #; Lymphocytes # 2.1 10*3/uL (1.4-4.0); Lymphocytes % 19.5 % (21.3-54.2); Mean Corpuscular HGB Conc 30.8 GM/DL (32-36); Mean Corpuscular Volume 87.9 FL (87-102); Mean Platelet Volume 9.5 FL (9.6-12.0); Neutrophils % 71.8 % (38.7-73.9); Platelet Count 271 T/CUMM (130-400); Red Blood Count 4.21 MC/CUMM (3.8-5.5); Red Cell Distribution Width 16.1 % (9.3-17.3); White Blood Count 10.6 T/CUMM (4-12)
[2018-11-29 06:17] LABS: Calcium 8.5 MG/DL (8.5-10.1)
[2018-11-29] MEDS: ENOXAPARIN 40 MG/0.4 ML SYRINGE SUBCUT SCH (06:56)
[2018-11-29] MEDS: MORPHINE 4 MG/1 ML VIAL IV PRN ×3 (06:57→21:20)
[2018-11-29] MEDS: amLODIPine 10 MG TABLET PO SCH (08:57)
[2018-11-29] MEDS: FAMOTIDINE 20 MG/2 ML VIAL IV SCH ×2 (08:57→21:20)
[2018-11-29] MEDS ORDERED: PANTOPRAZOLE 40 MG VIAL IV SCH (09:00)
[2018-11-29] MEDS ORDERED: PROMETHAZINE 25 MG TABLET PO PRN (15:39)
[2018-11-29] MEDS ORDERED: BUTALBITAL/ACETAMIN/CAFFEINE 50-325-40 MG TABLET PO PRN (15:39)
[2018-11-29] MEDS ORDERED: HYDROcod/ACETAMIN 7.5-325 MG/15 ML UDCUP PO PRN (15:40)
[2018-11-29] MEDS: TOPIRAMATE 100 MG TABLET PO SCH (21:20)
[2018-11-30 05:18] LABS: Basophils % 0.5 % (0.0-0.8); Eosinophils # 0.5 10*3/uL (0.0-0.87); Hemoglobin 10.5 GM/DL (12.0-16.0); Immature Granulocytes % 0.3 %; Immature Granulocytes Absolute 0.02 #; Lymphocytes # 2.3 10*3/uL (1.4-4.0); Lymphocytes % 30.2 % (21.3-54.2); Mean Corpuscular HGB Conc 30.9 GM/DL (32-36); Mean Corpuscular Volume 88.5 FL (87-102); Mean Platelet Volume 9.6 FL (9.6-12.0); Monocytes % 8.7 % (1.7-12.7); Neutrophils % 53.3 % (38.7-73.9); Platelet Count 252 T/CUMM (130-400); Red Blood Count 3.84 MC/CUMM (3.8-5.5); Red Cell Distribution Width 15.6 % (9.3-17.3); White Blood Count 7.6 T/CUMM (4-12)
[2018-11-30 05:49] LABS: Calcium 8.9 MG/DL (8.5-10.1)
[2018-11-30] MEDS: ENOXAPARIN 40 MG/0.4 ML SYRINGE SUBCUT SCH (06:20)
[2018-11-30] MEDS: POTASSIUM CHLORIDE INJ 20 MEQ in LACTATED RINGERS 1,000 ML IV SCH ×2 (08:48→18:35)
[2018-11-30] MEDS: PARoxetine 10 MG TABLET PO SCH (08:49)
[2018-11-30] MEDS: amLODIPine 10 MG TABLET PO SCH (08:49)
[2018-11-30] MEDS: FAMOTIDINE 20 MG/2 ML VIAL IV SCH ×2 (08:50→20:43)
[2018-11-30] MEDS: MORPHINE 4 MG/1 ML VIAL IV PRN ×3 (09:00→20:40)
[2018-11-30] MEDS: TOPIRAMATE 100 MG TABLET PO SCH (20:48)
[2018-12-01] MEDS: POTASSIUM CHLORIDE INJ 20 MEQ in LACTATED RINGERS 1,000 ML IV SCH (03:42)
[2018-12-01] MEDS: ENOXAPARIN 40 MG/0.4 ML SYRINGE SUBCUT SCH (05:20)
[2018-12-01 08:14] VITALS: BP 117/78
[2018-12-01] MEDS: PARoxetine 10 MG TABLET PO SCH (08:38)
[2018-12-01] MEDS: amLODIPine 10 MG TABLET PO SCH (08:38)
[2018-12-01] MEDS: FAMOTIDINE 20 MG/2 ML VIAL IV SCH (08:39)
[2018-12-01] MEDS: MORPHINE 4 MG/1 ML VIAL IV PRN (09:13)
== END 2018-12-01 11:12 | disposition home or self-care (01) | DRG 328 ==
LOC: N.SDSINP 05:47 → N.3E 12:43
PROVIDERS: ADMIT Surgery; ATTEND Surgery